=== PATIENT | female | born 1955 | race Caucasian/White ===

== ENCOUNTER 2019-12-09 13:07 | Inpatient (IN) | payer OTHER, MEDICARE ==
[~2019-12-09] VITALS: Ht 170.2 cm; Wt 36.7 kg
--- NOTE | 2019-12-09 13:55 | NUR ---
Patient seen by
--- NOTE | 2019-12-09 14:05 | NUR ---
PATIENT WAS MEDICALLY CLEARED BY DR CASTRO
--- NOTE | 2019-12-09 15:52 | NUR ---
Report given to becky do as informed by rn (Dennis) room been cleaned at this moment patient will be taken when room available. patient AAOx1. calm and cooperative.
[2019-12-09] MEDS ORDERED: ACETAMINOPHEN 325 MG TABLET PO PRN (16:15)
[2019-12-09] MEDS ORDERED: MAGNESIUM HYDROXIDE 30 ML LIQUID UDC PO PRN (16:15)
[2019-12-09] MEDS ORDERED: MAG HYDROX/AL HYDROX/SIMETH 30 ML LIQUID UDC PO PRN (16:15)
[2019-12-09] MEDS ORDERED: LORAZEPAM 0.5 MG TABLET PO PRN (16:15)
[2019-12-09] MEDS ORDERED: BLOOD SUGAR DIAGNOSTIC 1 EACH STRIP VI ONE (16:15)
[2019-12-09 16:30] VITALS: BP 100/62
--- NOTE | 2019-12-09 16:47 | NUR ---
Admission Note; Patient is a 64 year old female, brought in to the hospital by ambulance, admitted on a 5150 from [facility]. Patient is admitted on 5150 as GD. According to the hold , this patient has been experiencing altered level of consciousness, unable to answer questions and unable to state a reasonable plan for self care. Patient was rocking back and forth in bed mumbling to self and rambling incoherently. Upon face to face evaluation, patient behavior was calm and quiet. Responded to questions with minimal answers. Mood is depressed and trouble concentrating. Appearance is underweight and unkept. Patient stated " I have not eaten much in the last 3 months. Just not hungry". Patients weight upon arrival is 80 lbs. VS are stable. Oriented patient to the environment, Patients rights handbook given. Family notified of admission. No acute distress or issues at this time.
[2019-12-09 18:27] LABS: *BILIRUBIN,URIN NEGATIVE (NEGATIVE); *COLOR,URINE YELLOW (YELLOW); *KETONES,URINE NEGATIVE (NEGATIVE); *UROBILINOGEN,URINE 0.2 E.U./dl (NORMAL); LEUKOCYTE ESTERASE ,URINE TRACE (NEGATIVE); NITRITE, URINE NEGATIVE (NEGATIVE); UGLUCOSE NEGATIVE (NEGATIVE)
[2019-12-09 19:08] LABS: *BLOOD, URINE TRACE (NEGATIVE); *CLARITY,URINE SLIGHTLY HAZY (CLEAR)
[2019-12-09 19:09] LABS: MUCUS,URINE MODERATE /LPF (0-FEW); SQUAMOUS EPITHELIAL CELL,UR FEW /HPF (NONE SEEN)
[2019-12-09 20:31] VITALS: BP 99/55
[2019-12-10 07:30] VITALS: BP 101/57
[2019-12-10 07:56] LABS: BASOPHILS # (AUTO) 0.1 K/uL (0.0-8.0); BASOPHILS % (AUTO) 0.9 % (0.0-2.0); EOSINOPHILS # (AUTO) 0.1 K/uL (0.0-0.7); EOSINOPHILS % (AUTO) 1.3 % (0.0-7.0); HEMATOCRIT 37.8 % (31.2-41.9); HEMOGLOBIN 12.9 g/dL (10.9-14.3); LYMPHOCYTES # (AUTO) 1.1 K/uL (20.0-40.0); LYMPHOCYTES % (AUTO) 14.7 % (20.5-51.5); MEAN CORPUSCULAR HEMOGLOBIN 34.1 uug (24.7-32.8); MEAN CORPUSCULAR HGB CONC 34 g/dL (32.3-35.6); MEAN CORPUSCULAR VOLUME 99.4 fL (75.5-95.3); MONOCYTES # (AUTO) 0.5 K/uL (2.0-10.0); MONOCYTES % (AUTO) 6.5 % (0.0-11.0); NEUTROPHILS # (AUTO) 5.5 K/uL (1.8-8.9); NEUTROPHILS % (AUTO) 76.6 % (38.5-71.5); PLATELET COUNT (AUTO) 467 K/uL (179-408); WHITE BLOOD COUNT (AUTO) 7.2 K/uL (3.8-11.8)
[2019-12-10 08:25] LABS: CREATININE 0.6 mg/dL (0.6-1.3); TOTAL PROTEIN, SERUM 6.8 g/dL (6.4-8.2)
[2019-12-10 08:38] LABS: THYROID STIMULATING HORMONE 1.48 mIU/mL (0.358-3.740)
[2019-12-10 09:00] LABS: BILIRUBIN,TOTAL 0.4 mg/dL (0.2-1.0); POTASSIUM 3.5 mmol/L (3.5-5.1)
--- NOTE | 2019-12-10 10:48 | NUR ---
Social Work/Initial Discharge Plan: Patient lives at home on her own [address] [place] [address] ([phone]). Patient's children are very involved in her care and would like patient to return home if she is stable. SW will continue to work with patient, family, and MD to ensure a safe and proper discharge plan.
--- NOTE | 2019-12-10 10:51 | NUR ---
Social Work/Family Contact: SW spoke with patient's daughter, Isadora Parra ([phone]) and collected collateral information. Isadora stated that the patient is currently in the process fo a divorce since February 2019, and has been living on her own since then. Isadora stated that the patient has not had any previous psychiatric hospitalization until after the separation or prior mental illness. Since February 2019, patient has been on different anti-depressants and antipsychotics prescribed by her primary doctor and new psychiatrist (information to be gathered). Isadora stated that the patient has declined in functioning recently and is unable to provide for her self-care at the moment. Isadora stated that they would like the patient to return home if she is stable enough to live independently, however if not then they will consider alternate placement options such as an assisted living or [place] [facility] facility. Isadora stated that the patient does not have a DPOA or Conservator.
--- NOTE | 2019-12-10 10:55 | NUR ---
Social Work/Firearms Report (DOJ): Signalman completed and submitted a [employer] firearms report for 5150 grave disability certification. A copy of report has been placed in patient chart.
--- NOTE | 2019-12-10 12:52 | NUR ---
Received patient awake in her assigned room. Bed is in low and locked position. Patient is mute with this automobile service writer upon assessment, refusing to participate in assessment but is not showing signs of aggression towards others. Patient is guarded and withdrawn, no interaction with others. Patient is able to ambulate independently. Able to provide self care and ADL's independently. Patient is educated about impulse control, instructed to communicate needs to staff appropriately. Patient encouraged to participate in the unit milieu.
[2019-12-10 16:00] VITALS: BP 106/65
[2019-12-10] MEDS: busPIRone 5 MG TABLET PO SCH (16:23)
[2019-12-10 16:37] LABS: MAGNESIUM 1.6 mg/dL (1.8-2.4); PHOSPHOROUS 4.1 mg/dL (2.5-4.9)
[2019-12-10 20:07] VITALS: BP 101/54
[2019-12-10] MEDS: ATORVASTATIN 10 MG TABLET PO SCH (20:49)
[2019-12-10] MEDS ORDERED: OLANZAPINE 2.5 MG TABLET PO SCH (21:00)
--- NOTE | 2019-12-10 22:00 | NUR ---
received to care, isolating by self, pleasant, but selectively mute, restless at times, appearing distracted by internal stimuli. initially resistive to taking her medications, stating she does not take any meds at night, but eventually complying, after some encouragement. she refused a snack, but eventually went to sleep. as of 2199, she remains asleep. no distress noted. will continue to monitor closely. Addendum: 12/10/19 at 2345 by FAUSTINA BLACK LVN pt appears restless, rocking back and forth, at times.
[2019-12-11] MEDS: TEMAZEPAM 7.5 MG CAPSULE PO PRN (01:59)
--- NOTE | 2019-12-11 01:59 | NUR ---
pt is awake, and restless, walking around her room, in the dark. PRN restoril was offered for insomnia, but she was hesitant to take it, but finally took it, with much encouragement.
--- NOTE | 2019-12-11 02:30 | NUR ---
apears to be asleep. no distress noted.
--- NOTE | 2019-12-11 06:00 | NUR ---
slept 4.25 hours
[2019-12-11 07:30] VITALS: BP 101/63
[2019-12-11] MEDS: busPIRone 5 MG TABLET PO SCH ×2 (08:54→16:54)
[2019-12-11] MEDS ORDERED: FLUOXETINE HCL 20 MG CAPSULE PO SCH (09:00)
--- NOTE | 2019-12-11 09:31 | NUR ---
Social Work/UR Note: AUTHORIZATION#[id number] OBTAINED FROM SUKHDEV Lainez WITH [facility] DEPT. / THE TEA BLENDER COLEEN D[employer] CALLED BACK TO COMPLETE APPROVAL AND AUTHORIZED 3 DAYS HSPT STAY FROM 10-08 TO 10-10-20 WITH REVIEW DUE ON THE . HER DIRECT LINE IS; [phone] EXT [phone].
--- NOTE | 2019-12-11 11:58 | NUR ---
Gps/Sizer Hand Restless, figity, anxious, refusing to take routine am meds, reviewed with patient, importance . of her medications, claimed she does not want to take any medicines, "ever" per pt., but when staff left her room, she came chasing her and decided to take her routine meds. after all.
--- NOTE | 2019-12-11 13:20 | NUR ---
Gps/Primer Boxer- Encouraged to attend her group therapy, noted patient pacing in and out of her room to the hallway, not interactive, hesitancy to talk , has eye contact, but wont initiate to talk.
[2019-12-11 16:00] VITALS: BP 117/63
[2019-12-11] MEDS ORDERED: LORAZEPAM 1 MG TABLET PO PRN (17:15)
[2019-12-11] MEDS ORDERED: LORAZEPAM 0.5 MG TABLET PO PRN (17:15)
--- NOTE | 2019-12-11 17:26 | NUR ---
Dr. Griffin notified regarding magnesium level 1.6 , waiting for MD to returned call.
[2019-12-11] MEDS: LORAZEPAM 0.5 MG TABLET PO PRN (20:21)
[2019-12-11 20:37] VITALS: BP 104/58
[2019-12-11] MEDS ORDERED: OLANZAPINE 2.5 MG TABLET PO SCH (21:00)
[2019-12-11] MEDS: ATORVASTATIN 10 MG TABLET PO SCH (21:16)
--- NOTE | 2019-12-11 22:00 | NUR ---
eceived to care, isolating by self, pleasant, but selectively mute, restless at times, rocking back and forth, fidgety, appearing distracted by internal stimuli. initially resistive to taking her medications, stating she does not take any, but eventually complied, after some encouragement. PRN was given around 1999, with minimal effects. as of 2199, she remains awake, lying in bed. dozing on and off. she refused PRN medication, for insomnia. no distress noted. will continue to monitor closely.
[2019-12-12] MEDS: TEMAZEPAM 7.5 MG CAPSULE PO PRN (01:48)
--- NOTE | 2019-12-12 01:49 | NUR ---
pt is awake, wandering around the room, in the dark; PRN restoril, given for insomnia.
--- NOTE | 2019-12-12 02:30 | NUR ---
appears to be asleep. no distress noted.
[2019-12-12 07:30] VITALS: BP 106/64
[2019-12-12] MEDS ORDERED: FLUOXETINE HCL 10 MG CAPSULE PO SCH (09:00)
[2019-12-12] MEDS ORDERED: FLUOXETINE HCL 20 MG CAPSULE PO SCH (09:00)
[2019-12-12] MEDS: busPIRone 5 MG TABLET PO SCH ×2 (09:11→18:01)
--- NOTE | 2019-12-12 11:30 | NUR ---
Gps/Advertising Teacher- During shower, noted a foam on her coccygeal area, foam was removed by MANUFACTURER, noted > redness bony prominence,z-guard was ordered, kept skin dry and clean, mepilex foam applied to protect site. Patient may benefit from MVI,
[2019-12-12 13:04] LABS: BASOPHILS # (AUTO) 0.1 K/uL (0.0-8.0); BASOPHILS % (AUTO) 1.3 % (0.0-2.0); EOSINOPHILS # (AUTO) 0.1 K/uL (0.0-0.7); EOSINOPHILS % (AUTO) 1.3 % (0.0-7.0); HEMATOCRIT 34.9 % (31.2-41.9); HEMOGLOBIN 11.8 g/dL (10.9-14.3); LYMPHOCYTES # (AUTO) 1.2 K/uL (20.0-40.0); LYMPHOCYTES % (AUTO) 19.4 % (20.5-51.5); MEAN CORPUSCULAR HGB CONC 34 g/dL (32.3-35.6); MEAN CORPUSCULAR VOLUME 100.1 fL (75.5-95.3); MONOCYTES # (AUTO) 0.5 K/uL (2.0-10.0); MONOCYTES % (AUTO) 8.9 % (0.0-11.0); NEUTROPHILS # (AUTO) 4.2 K/uL (1.8-8.9); NEUTROPHILS % (AUTO) 69.1 % (38.5-71.5); PLATELET COUNT (AUTO) 400 K/uL (179-408); RED BLOOD CELL COUNT(AUTO) 3.49 MIL/uL (3.63-4.92)
[2019-12-12 13:10] LABS: BILIRUBIN,TOTAL 0.2 mg/dL (0.2-1.0); CREATININE 0.6 mg/dL (0.6-1.3); POTASSIUM 4.1 mmol/L (3.5-5.1); TOTAL PROTEIN, SERUM 6.6 g/dL (6.4-8.2)
[2019-12-12] MEDS: Z GUARD REMEDY PASTE 57 GM TUBE TOP SCH ×2 (15:21→21:05)
[2019-12-12 16:00] VITALS: BP 107/56
--- NOTE | 2019-12-12 16:17 | NUR ---
Social Work/UR Note: AUTHORIZATION#[id number] provided clinical updates to Geno from [facility] ([phone]) and patient is authorized until Sunday.
[2019-12-12 20:57] VITALS: BP 108/58
[2019-12-12] MEDS ORDERED: OLANZAPINE 2.5 MG TABLET PO SCH (21:00)
[2019-12-12] MEDS: OLANZAPINE 5 MG TABLET PO SCH (21:04)
[2019-12-12] MEDS: ATORVASTATIN 10 MG TABLET PO SCH (21:04)
--- NOTE | 2019-12-13 05:37 | NUR ---
Patient first observed awake, alert and oriented x3 with a visitor (sister Sofia). Flat affect, low mood, pleasant on approach. Poor appearance appeared disheveled and unkempt. Cooperative and compliant. Patient is able to communicate needs to staff. Patient is able to perform ADL's, requires nursing interventions and motivation. Patient slept through night with no apparent distress. Will continue to monitor for safety as well as provide a therapeutic environment. Last observed lying in bed with eyes closed. Addendum: 12/13/19 at 0546 by NONI SCHMIDT RN !!!!!!!ABOVE NOTE ENTERED IN ERROR. PLEASE DISREGARD!!!!!!!
--- NOTE | 2019-12-13 05:46 | NUR ---
GPS/NSG Patient first observed awake, and alert. Flat affect, low mood, appears guarded and withdrawn on approach. Pt. observed to be mute/catatonic like as reported by medical record. Patient avoided communication with staff providing a head shake indicative of a "yes" answer when asked if she felt alright, and a "no" shake when asked if there was assistance required . Patient is able to perform ADL's independently however lacks motivation and maximum nursing interventions are required. Patient appeared to be asleep during early hours of the night however late into the night patient was awake in room pacing, restless and anxious staff unable to offer prn for insomnia at this time. PRN for anxiety offered with no reply at first, after several offers patient stated in a whisper like tone of voice "i am okay". Will continue to monitor for safety as well as provide a therapeutic environment. Last observed awake and pacing in room.
[2019-12-13 07:30] VITALS: BP 119/64
[2019-12-13] MEDS: Z GUARD REMEDY PASTE 57 GM TUBE TOP SCH ×2 (09:00→20:27)
[2019-12-13] MEDS: busPIRone 5 MG TABLET PO SCH ×2 (09:05→18:37)
[2019-12-13 15:27] VITALS: BP 108/60
[2019-12-13 20:00] VITALS: BP 120/71
[2019-12-13] MEDS: LORAZEPAM 0.5 MG TABLET PO PRN (20:01)
[2019-12-13] MEDS: ATORVASTATIN 10 MG TABLET PO SCH (20:02)
[2019-12-13] MEDS: OLANZAPINE 5 MG TABLET PO SCH (20:59)
--- NOTE | 2019-12-13 22:00 | NUR ---
Received to care, isolating by self, pleasant, but selectively mute, restless at times, pacing the room, rocking back and forth, fidgety, peeking out of her doorway, appearing distracted by internal stimuli. initially resistive to taking her medications, stating, "i am ok", but eventually complied, after some encouragement. PRN was given at 2000, for anxiety. as of 2199, she appears to be asleep. no distress noted. will continue to monitor
--- NOTE | 2019-12-14 06:00 | NUR ---
slept 7.75 hours total. continues to sleep. no distress noted.
[2019-12-14 07:30] VITALS: BP 98/63
[2019-12-14] MEDS: busPIRone 5 MG TABLET PO SCH ×2 (08:35→17:07)
[2019-12-14] MEDS: Z GUARD REMEDY PASTE 57 GM TUBE TOP SCH ×2 (08:44→20:54)
[2019-12-14] MEDS: LORAZEPAM 0.5 MG TABLET PO PRN ×2 (12:57→19:54)
--- NOTE | 2019-12-14 13:36 | NUR ---
Gps/Pants Presser Automatic- Patient's daughter Isadora called, was able to talk to patient.
[2019-12-14 15:58] VITALS: BP 113/54
--- NOTE | 2019-12-14 16:00 | NUR ---
Gps/Car Wrecker- Coccygeal redness,improving Z-guard applied, mepilex foam dressing reapplied. Encouraged pressure relief, keeping skin dry and clean
[2019-12-14 20:20] VITALS: BP 83/46
[2019-12-14] MEDS: OLANZAPINE 5 MG TABLET PO SCH (20:54)
[2019-12-14] MEDS: ATORVASTATIN 10 MG TABLET PO SCH (20:54)
[2019-12-14 21:00] VITALS: BP 93/52
[2019-12-14 22:00] VITALS: BP 108/66
--- NOTE | 2019-12-14 23:38 | NUR ---
received to care, pacing the room, appearing restless, unable to stand still. PRN ativan was given at 1953. by bedtime, she appeared much calmer, and took her routine medications, and some apple juice. as of 2199, she appears to be asleep. no distress noted. will continue to monitor closely.
--- NOTE | 2019-12-15 06:00 | NUR ---
slept 8.0 hours, total. continues to sleep. no distress noted.
[2019-12-15 07:30] VITALS: BP 109/42
[2019-12-15] MEDS: busPIRone 5 MG TABLET PO SCH ×2 (08:27→16:24)
[2019-12-15] MEDS: Z GUARD REMEDY PASTE 57 GM TUBE TOP SCH ×2 (08:27→20:24)
--- NOTE | 2019-12-15 09:30 | NUR ---
received patient pacing in the hallway. Patient is awake and alert, unable to assess orientation because patient is selectively mute. Patient is heard mumbling incoherently quietly to herself but does not respond to questions from this grant writer. Patient is medication adherent with prompting, no adverse reaction noted. Patient is seen frequently pacing in the hallway but has no interaction with others. She appears suspicious of others and is internally preoccupied. Patient refusing to state where she is having AH or VH. Patient is educated about communicating needs appropriately to staff. Educated about impulse control. Patient is able to ambulate independently, able to provide self care and ADL's independently. Patient is able to tolerate food and fluids. Will continue to monitor.
--- NOTE | 2019-12-15 10:43 | NUR ---
Social Work/Discharge Planning: Larder Cook faxed patient's referral packet including: History and Physical, Consultation, Progress Notes, Medication List and Labs to the following facilities for review and possible fdc placement: [facility] attention to Miguel [facility] attention to Anne-Marie Addendum: 12/16/19 at 1207 by GERMAN MONSALVE MORALES spoke with Miguel ([phone]) from [facility] who stated they cannot accept the patient to their facility due to behaviors. MORALES spoke with Judit from [facility] ([phone]) who will be evaluating the patient tomorrow morning for possible placement.
[2019-12-15 15:32] VITALS: BP 99/55
--- NOTE | 2019-12-15 16:12 | NUR ---
Social Work/UR Note: AUTHORIZATION#[id number] Agricultural Chemist left a voicemail for Geno wiley [place] ([phone], ext. [phone]) to update with patient's clinicals.
[2019-12-15 20:00] VITALS: BP 138/61
[2019-12-15] MEDS: OLANZAPINE 5 MG TABLET PO SCH (20:24)
[2019-12-15] MEDS: ATORVASTATIN 10 MG TABLET PO SCH (20:29)
--- NOTE | 2019-12-16 00:09 | NUR ---
RECEIVED PATIENT PACING THE HALLWAY AND MUMBLING QUIETLY TO HERSELF.UPON APPROACH SHE WAS MUTE AND SEEMS TO BE INTERNALLY PREOCCUPIED. SHE IS MEDICATION COMPLIANT WITH A LOT OF PROMPTING AND APPEARS SUSPICIOUS. WOULD NOT SAY WHETHER SHE HAS AH/VH. WILL CONTINUE TO MONITOR CLOSELY.
--- NOTE | 2019-12-16 06:10 | NUR ---
SHE SLEPT FOR ONLY 2HRS.SHE KEPT PACING IN HER ROOM OR SITTING IN HER BED AND ROCKING. V/S AT 23HR WAS BP138/61,P.81,R.18 AND SP02 95.AT 0200 IT WAS BP.128/78,P.80,R19 AND SP02 WAS 97.AT 06;00 IT WAS BP.129/70,P.89,R.18.LIBERAL FLUIDS OFFERED BUT ONLY SIPS TAKEN.WILL CONTINUE TO MONITOR.
--- NOTE | 2019-12-16 07:30 | NUR ---
RECIEVED PT AMBULATING UP AND DOWN THE JORGE. DOES NOT TALK OR REFUSED TO ANSWER QUESTIONS. PT HAS A SELECTIVE APHASIA. PT IS VERY SKINNY, GAIT IS STEADY.
[2019-12-16] MEDS: busPIRone 5 MG TABLET PO SCH ×3 (08:33→16:08)
[2019-12-16] MEDS: Z GUARD REMEDY PASTE 57 GM TUBE TOP SCH ×2 (08:34→20:25)
--- NOTE | 2019-12-16 12:05 | NUR ---
Social Work/Coordination of Care: Publicity Director faxed patient's referral packet including: History and Physical, Consultation, Progress Notes, Medication List and Labs to: [facility] Attention to [facility] [place] [address] MORALES spoke with Judit from [facility] ([phone]) who will be evaluating the patient tomorrow morning for possible placement.
--- NOTE | 2019-12-16 12:10 | NUR ---
Social Work Note/Family Contact: Hospital Medicine Director spoke with patient's daughter, Isadora Parra ([phone]) regarding patient acceptance to [facility] and Isadora is agreeable with this plan. Isadora would like for the patient to go to care home facility.
[2019-12-16] MEDS ORDERED: ENSURE WITH FIBER 237 ML LIQUID (CHOCOLATE) PO SCH (12:15)
[2019-12-16] MEDS: LORAZEPAM 0.5 MG TABLET PO PRN (12:54)
[2019-12-16] MEDS: OLANZAPINE 2.5 MG TABLET PO SCH (12:54)
--- NOTE | 2019-12-16 14:53 | NUR ---
Social Work/ Note: AUTHORIZATION#[id number] Flight Line Service Attendant left clinical updates over voicemail for Geno inez [facility]ub[facility] ([phone], ext. [phone]) to update with patient's clinicals. Addendum: 12/16/19 at 1532 by GERMAN MONSALVE Auth# [id number] Authorized for 12/15/19 and 12/16/19. Review due tomorrow with Ira ([phone] ext. [phone]).
[2019-12-16] MEDS: ATORVASTATIN 10 MG TABLET PO SCH (20:25)
[2019-12-16] MEDS: OLANZAPINE 5 MG TABLET PO SCH (20:25)
[2019-12-16 21:29] VITALS: BP 109/47
--- NOTE | 2019-12-17 00:35 | NUR ---
GPS: Pt.still awake at this time. Refused Restoril prn for sleep despite explanation of risks vs.benefits. Quiet environment provided to facilitate sleep. Re-assured prn . Will continue to monitor.
[2019-12-17 07:30] VITALS: BP 114/66
--- NOTE | 2019-12-17 07:54 | NUR ---
Received patient Awake AAOx3-4. follows directions no c/of any discomfort.
[2019-12-17] MEDS: busPIRone 5 MG TABLET PO SCH ×3 (08:40→17:03)
[2019-12-17] MEDS: Z GUARD REMEDY PASTE 57 GM TUBE TOP SCH ×2 (08:40→20:24)
[2019-12-17] MEDS: OLANZAPINE 2.5 MG TABLET PO SCH (12:03)
--- NOTE | 2019-12-17 14:58 | NUR ---
Social Work Individual Therapy Note: SW met with patient and provided brief individual supportive counseling to address patient's anxiety. Patient presents anxious about discharge and her "medicare insurance not covering for the hospital stay". SW attempted to redirect the patient and calm, but unsuccessful. Patient continues to have disorganized thoughts and fixate on the idea of her insurance. Patient repeats "you don't understand, you don't understand, you're just saying that". wharf worker redirected patient and will continue to remain available for support.
[2019-12-17 16:00] VITALS: BP 108/76
[2019-12-17] MEDS: LORAZEPAM 0.5 MG TABLET PO PRN (16:15)
--- NOTE | 2019-12-17 17:00 | NUR ---
patient pacing back and forth in the hallway getting increasingly agitated, stating her insurance wont cover her hospitalization. Patient educated, and redirected to her room at this time unable to contract. Patient medicated as ordered with ativan prn. Will continue to monitor.
[2019-12-17] MEDS: ATORVASTATIN 10 MG TABLET PO SCH (20:23)
[2019-12-17] MEDS: OLANZAPINE 5 MG TABLET PO SCH (20:23)
[2019-12-17 20:32] VITALS: BP 102/53
--- NOTE | 2019-12-17 22:00 | NUR ---
received to care, lying in bed, appearing calm, and pleasant upon approach. remains isolative, but is able to verbalize her needs, and concerns. compliant with medications. ate a snack of apple sauce and apple juice. as of 2200, she appears to be asleep. no distress noted. will continue to monitor closely.
[2019-12-18] MEDS: LORAZEPAM 0.5 MG TABLET PO PRN (02:47)
--- NOTE | 2019-12-18 02:48 | NUR ---
pt is now awake, and pacing the halway; PRN ativan wsas given at this time, for anxiety.
--- NOTE | 2019-12-18 03:30 | NUR ---
appears to be asleep. no distress noted.
--- NOTE | 2019-12-18 05:30 | NUR ---
slept well. continues to sleep. no distress noted.
[2019-12-18 07:30] VITALS: BP_SYST 152; BP_SYST 97; BP_DIAS 52; BP_DIAS 65
[2019-12-18] MEDS: Z GUARD REMEDY PASTE 57 GM TUBE TOP SCH ×2 (09:09→20:05)
[2019-12-18] MEDS: busPIRone 5 MG TABLET PO SCH ×3 (09:09→17:11)
[2019-12-18] MEDS: OLANZAPINE 2.5 MG TABLET PO SCH (12:52)
[2019-12-18 15:15] VITALS: BP 100/65
--- NOTE | 2019-12-18 15:17 | NUR ---
Gps/Radiosonde Operator- Needed prompting and encouragement to eat, Daughter called, wants to know dc.plan, and any progress made by her mother, requesting to talk to S.W.
--- NOTE | 2019-12-18 18:39 | NUR ---
Gps/Jawbone Breaker- Patient increased pedal edema to bilateral lower ext. , daughter verbalized concerns. Will informed Medical Doctor.
[2019-12-18 20:00] VITALS: BP 96/60
[2019-12-18] MEDS: OLANZAPINE 5 MG TABLET PO SCH (20:04)
[2019-12-18] MEDS: ATORVASTATIN 10 MG TABLET PO SCH (20:04)
--- NOTE | 2019-12-18 22:00 | NUR ---
received to care, pacing the hallway intermittently, pleasant upon approach. remains isolative, but compliant with medications. ate a snack of apple sauce and apple juice, with assistance. as of 2200, she appears to be asleep. no distress noted. will continue to monitor closely.
--- NOTE | 2019-12-19 06:00 | NUR ---
slept well, 6.5 hours. is now awake, and pacing in her room. no distress noted.
[2019-12-19 07:30] VITALS: BP 124/58
[2019-12-19] MEDS ORDERED: LORAZEPAM 0.5 MG TABLET PO PRN (08:00)
--- NOTE | 2019-12-19 08:08 | NUR ---
Social Work Discharge Note: [facility] [address] [facility] [address] ([phone]). Patient will be provided ambulance transportation at 12pm. Spoke with martir Ramsey at the facility who states they are ready to accept the patient today. Patients daughter, Isadora Parra ([phone]) is aware and agreeable with discharge plans. Patient is aware and agreeable with discharge plans and presents with normal mood and congruent affect. Patient is alert and oriented x3, is unable to plan for self-care, however, would like to receive care at the facility. Patient denies any suicidal or homicidal ideation. Patient will follow-up at the facility with Psychiatrist Dr. Morales and Auto Winder Dr. Griffin. [employer] faxed patients discharge packet to the facility. Addendum: 12/19/19 at 0821 by GERMAN MONSALVE Canceled discharge for today, per psychiatrist Dr. Morales patient is not ready.
[2019-12-19] MEDS: busPIRone 5 MG TABLET PO SCH ×3 (08:37→16:18)
[2019-12-19] MEDS: Z GUARD REMEDY PASTE 57 GM TUBE TOP SCH ×2 (09:38→20:07)
[2019-12-19] MEDS: FLUOXETINE HCL 10 MG CAPSULE PO SCH (12:58)
--- NOTE | 2019-12-19 13:30 | NUR ---
Gps/Car Supplier- Gets restless, extremely anxious figity, difficulty redirecting patient , gets intrusive . Needed assist with her meals, staff assisted patient during her lunch, spoon feeding her as she tries to get away from the staff.. Pedal edema , Dr Morales was in to see patient verbal orders received. for labs. in am, as well as knee high rosaura hose if patient allow staff to put it on her.
[2019-12-19 15:02] VITALS: BP 117/71
--- NOTE | 2019-12-19 16:12 | NUR ---
Social Work UR Note: SW left a voicemail message with patient's updated clinicals, cancellation is discharge, medication changes for April housekeeping manager ([phone] EXT [phone]) AUTHORIZATION#[id number]
--- NOTE | 2019-12-19 18:04 | NUR ---
Gps/Hockey Scout- Intrusive, staff providing constant redirections. Patient starting to talk more but speech is incoherent and confused..
[2019-12-19 20:01] VITALS: BP 125/52
[2019-12-19] MEDS: ATORVASTATIN 10 MG TABLET PO SCH (20:07)
[2019-12-19] MEDS: OLANZAPINE 5 MG TABLET PO SCH (20:07)
[2019-12-20 07:29] LABS: CREATININE 0.5 mg/dL (0.6-1.3); POTASSIUM 4.2 mmol/L (3.5-5.1)
[2019-12-20 08:00] VITALS: BP 118/72
[2019-12-20] MEDS: Z GUARD REMEDY PASTE 57 GM TUBE TOP SCH ×2 (08:56→20:11)
[2019-12-20] MEDS: busPIRone 5 MG TABLET PO SCH ×3 (08:56→16:32)
--- NOTE | 2019-12-20 10:42 | NUR ---
Received patient awake and alert. Bed is in low and locked position. Patient is pacing continuously in her assigned room. She does not participate in face to face assessment with this check writer salesperson, she just continuously mumbles quietly and incoherently to herself. Patient appears anxious, is restless, guarded, and is isolative. Patient is encouraged to communicate her needs to staff. Patient is medication adherent, no adverse reaction noted. Patient is able to perform self care and ADL's independently. Able to tolerate food and fluids. Will continue to monitor.
[2019-12-20] MEDS: FLUOXETINE HCL 10 MG CAPSULE PO SCH ×2 (13:26→16:32)
[2019-12-20 15:00] VITALS: BP 117/60
[2019-12-20 20:06] VITALS: BP 148/65
[2019-12-20] MEDS: ATORVASTATIN 10 MG TABLET PO SCH (20:08)
[2019-12-20] MEDS: OLANZAPINE 5 MG TABLET PO SCH (20:08)
--- NOTE | 2019-12-21 03:01 | NUR ---
RECEIVED PATIENT PACING IN HER ROOM AND ONLY OCCASIONALLY LYING IN BED. SHE COULD BE HEARD MUMBLING TO HERSELF BUT REMAINS NON INTERACTIVE. REDIRECTION GIVEN. COMPLIANT WITH HER MEDICATIONS BUT REMAINS ISOLATIVE.VISUAL CHECKS MADE ON HER FOR SAFETY.WILL CONTINUE TO MONITOR.
--- NOTE | 2019-12-21 07:00 | NUR ---
SLEPT FOR 2;25 HRS.SHE RECEIVED A SHOWER.
[2019-12-21 07:30] VITALS: BP 113/62
[2019-12-21] MEDS: busPIRone 5 MG TABLET PO SCH ×3 (08:37→17:42)
[2019-12-21] MEDS: Z GUARD REMEDY PASTE 57 GM TUBE TOP SCH ×2 (08:37→20:14)
[2019-12-21] MEDS: FLUOXETINE HCL 10 MG CAPSULE PO SCH (12:29)
[2019-12-21 15:13] VITALS: BP 130/67
[2019-12-21] MEDS: OLANZAPINE 5 MG TABLET PO SCH (20:14)
[2019-12-21] MEDS: ATORVASTATIN 10 MG TABLET PO SCH (20:14)
[2019-12-21 20:36] VITALS: BP 130/73
--- NOTE | 2019-12-22 07:02 | NUR ---
Pt is selectively mute and did not respond to any questions. Noted to be restless, anxious, and internally preoccupied. Compliant with medications with prompting. VS stable, no evidence of pain.
[2019-12-22 07:30] VITALS: BP 96/55
--- NOTE | 2019-12-22 08:23 | NUR ---
Social Work Discharge Note: [facility] be [facility] today [facility] [address] [facility] [address] ([phone]). Patient will be provided ambulance transportation at 12pm. Spoke with martir Ramsey at the facility who states they are ready to accept the patient today. Patients daughter, Isadora Parra ([phone]) is made aware and agreeable with discharge plans. Patient is aware and agreeable with discharge plans and presents with withdrawn mood and flat affect. Patient is alert and oriented x3, is unable to plan for self-care, however, would like to receive care at the facility. Patient denies any suicidal or homicidal ideation. Patient will follow-up at the facility with Psychiatrist Dr. Morales and Pouncing Machine Operator Dr. Griffin. Engine Lathe Operator faxed patients discharge packet to the facility.
[2019-12-22] MEDS: Z GUARD REMEDY PASTE 57 GM TUBE TOP SCH (09:00)
[2019-12-22] MEDS: busPIRone 5 MG TABLET PO SCH ×2 (09:02→12:51)
--- NOTE | 2019-12-22 09:49 | NUR ---
Social Work UR Note: SW left a voicemail message with patient's updated clinicals for discharge for April application manager ([phone] EXT [phone]) AUTHORIZATION#[id number]
--- NOTE | 2019-12-22 13:15 | NUR ---
GPS: Nursing Notes: Discharge Notes: Patient awake and responding to her name, cooperative with nursing care, compliant with her medications, following staff directions, denies any SI/HI, denies any AH/VH, denies any pain or discomfort, denies any SOB, discharge to [facility] at [address] [place] [address] , report given to Aurora GUTIERRES supervisor lending activities, took all her belonging with her, transported to facility via ambulance. Patient will follow-up at the facility with Psychiatrist Dr. Morales and Physical Fitness Trainer Dr. Griffin. Android Ui Developer faxed patients discharge packet to the facility.
== END 2019-12-22 13:15 | DRG 885 ==
LOC: ER 13:07 → GPS 15:46
PROVIDERS: ADMIT Psychiatry & Neurology Psychosomatic Medicine; ATTEND Internal Medicine
DX: F39 Unspecified mood [affective] disorder (principal); F01.50 Vascular dementia, unspecified severity, without behavioral disturbance, psychotic disturbance, mood disturbance, and anxiety; N39.0 Urinary tract infection, site not specified; Z68.1 Body mass index [BMI] 19.9 or less, adult; E87.1 Hypo-osmolality and hyponatremia; E44.0 Moderate protein-calorie malnutrition; E86.0 Dehydration; E83.42 Hypomagnesemia; D75.89 Other specified diseases of blood and blood-forming organs; R62.7 Adult failure to thrive
CPT/HCPCS: 36415; 83735; 84100; 84443; 85025; 87086; 93005; A4663